=== PATIENT | female | born 1990 | race Caucasian/White ===

== ENCOUNTER → 2016-05-29 | Outpatient (CLI) | payer OTHER, MEDICAID ==
[~2016-05-29] MED LIST: BUPR75TA PO; TAB-TAB PO; ZANTTAB PO; [UNRECOGNIZED DRUG - CODE]
[2016-05-29 12:06] LABS: HEMATOCRIT 36.7 % (35.0-46.0); MEAN CELL VOLUME 84.2 FL (80.0-100.0); MEAN CORPUSCULAR HEMOGLOBIN 28.4 PG (27.0-34.0); MEAN CORPUSCULAR HGB CONC 33.7 % (32.0-36.0); PLATELET COUNT 241 TH/MM3 (150-450); RED BLOOD COUNT 4.35 MIL/MM3 (4.00-5.30); RED CELL DISTRIBUTION WIDTH 13.7 % (11.6-17.2); REVIEW FLAG FINAL
== END ==
LOC: CPRE 11:36
PROVIDERS: ATTEND Specialist
DX: Z01.812 Encounter for preprocedural laboratory examination (principal)
CPT/HCPCS: 36415; 85027

== ENCOUNTER → 2016-05-31 | Day surgery (SDC) | payer OTHER, MEDICAID ==
--- NOTE | 2016-05-30 08:31 | MH ---
cc: LAWRENCE AGUILLON DATE OF ADMISSION: 05/31/2016 HISTORY OF PRESENT ILLNESS A 25-year-old with chronic sinusitis, nasal obstruction and chronic otitis, for open septal reconstruction, bilateral turbinectomy, bilateral endoscopic sinusotomy, bilateral myringotomy and tube placement. PAST MEDICAL HISTORY Unremarkable. PAST SURGICAL HISTORY Unremarkable. REVIEW OF SYSTEMS/FAMILY HISTORY/SOCIAL HISTORY Unremarkable. PHYSICAL EXAMINATION GENERAL: Well-appearing patient, in no acute distress noted. HEENT: Exam reveals fluid behind each eardrum, septal deviation, turbinate hypertrophy, copious clear secretions. LUNGS: Clear. HEART: Regular rate and rhythm. ABDOMEN: Soft and nontender. EXTREMITIES: Without cyanosis, clubbing or edema. NEUROLOGIC: Alert, oriented, nonfocal neurologic exam. IMPRESSION The patient with chronic otitis, chronic sinusitis and nasal obstruction for surgical correction. Instructed method of surgery and possible complication to include anesthetic complication, cardiac difficulty, pulmonary difficulty, stroke, coma or even . Surgical complication of bleeding, infection, risk of transfusion, risk of injury to orbit including blindness and diplopia, injury to brain including CSF leak, meningitis, brain abscess or even , early or late extrusion of tubes, tympanic membrane perforation, conductive or sensorineural hearing loss. The patient appeared to agree, accept and understand above-mentioned risks and benefits. No guarantees or warranties regarding outcome were given. We will therefore proceed with surgery. MD GURINDER Easton/LEE /8:09 AM /8:13 AM
[~2016-05-31] VITALS: Ht 172.7 cm; Wt 122.5 kg
[~2016-05-31] MED LIST changes: +*morphine SULFATE 8 MG/ML PERIprocedure ONLY ONE; +ACETAMINOPHEN 1000 MG/100 ML VIAL IV ONE; +ACETAMINOPHEN/HYDROcodone 325 MG/7.5 MG TAB PO PRN; +CHLORHEXIDINE GLUCONATE 2 % 1 PACK (2 CLOTHS) TOPICAL PRN; +EPINEPHrine HCL (1:1000) 30 MG/30 ML VIAL ONE; +INSULIN HUMAN REGULAR 1,000 UNITS/10 ML VIAL SQ PRN; +LACTATED RINGER'S 1000 ML IV PRN; +LIDOCAINE 1%/EPINEPHrine 1:200,000 PF SOLN 30 ML VIAL OTHER ONE; +METOPROLOL TARTRATE 25 MG TAB PO PRN; +MORPHINE SULFATE 4 MG/ML INJ IV PRN; +OFLOXACIN 0.3% OPTH SOLN 5 ML BTL ONE; +ONDANSETRON HCL 4 MG/2 ML VIAL IV PUSH ONE; +ONDANSETRON HCL 4 MG/2 ML VIAL IV PUSH PRN; +POVIDONE IODINE 5% (ANTISEPSIS KIT) 4 APPLICATIONS EACH NARE PRN; +PROPOFOL 200 MG/20 ML AMP IV ONE; +SODIUM CHLORID 0.9% 500 ML IV PRN; -TAB-TAB PO; -[UNRECOGNIZED DRUG - CODE]; +fentaNYL CITRATE 250 MCG/5 ML AMP ONE
[2016-05-31 06:27] VITALS: BP 113/56; PULSE 79; RESP 18; TEMP 98.2; O2SAT 97
[2016-05-31 11:44] VITALS: BP 142/69; PULSE 78; RESP 16; TEMP 97.7; O2SAT 98
--- NOTE | 2016-06-03 09:12 | MP ---
cc: LAWRENCE AGUILLON DATE OF SURGERY: 05/31/2016 PREOPERATIVE DIAGNOSIS: Nasal obstruction, chronic sinusitis, chronic otitis. POSTOPERATIVE DIAGNOSIS: Nasal obstruction, chronic sinusitis, chronic otitis. PROCEDURE Open septal reconstruction, left endoscopic maxillary antrostomy, right endoscopic maxillary antrostomy, right endoscopic anterior ethmoidectomy, right endoscopic frontal sinusotomy, left and right inferior turbinectomy, submucous resection, bilateral myringotomy and tube placement. ANESTHESIA: General. ESTIMATED BLOOD LOSS 300 cc COMPLICATIONS: None. OPERATING SURGEON Dr. Aguillon. OPERATION The patient was prepped and draped in the usual fashion. 1% Xylocaine 1:100,000 epinephrine injected into nasal septum, inferior turbinate, middle meatus bilaterally. 1:1000 adrenaline soaked pledgets were placed and then under microscopic visualization anterior-inferior radial myringotomy incision made on the right ear. Fluid suctioned from the middle ear cavity and a tympanostomy T-tube placed in good position along with Oflox. In a similar fashion left side anterior-inferior radial myringotomy incision made through microscopic visualization. Fluid suctioned from middle ear cavity and tympanostomy T-tube placed in good position along with Oflox. Under endoscopic visualization, an uncinectomy was performed on the right side with microdebrider. Natural antrostomy identified and enlarged with the microdebrider as well, anterior posterior ethmoidectomy performed with microdebrider. A significant amount of bleeding was noted. The patient was generally very bloody and all mucosal surfaces that were operated on were significantly bleeding. The frontal sinus recess was dissected with the microdebrider and the balloon sinuplasty was used to dilate the frontal sinus on the right side. At this point a mucoperichondrial incision was made on the left septum. A mucoperichondrial flap elevated. A significant amount of bone and cartilage removed to improve the nasal airway and reduce the nasal fracture. The mucoperichondrial flap was reapproximated. Under endoscopic visualization, the natural antrostomy was identified and enlarged with the microdebrider and a partial uncinectomy performed. A Telfa splint was placed in the right middle meatus. The inferior turbinates were submucosally vaporized partially with the Coblator probe, multiple insertions, power level 4, both sides were made. At the end of the procedure, moderate bleeding was still noted and bilateral Nasopore packing was placed. The patient tolerated the procedure well. MD GURINDER Easton/ELANA /8:43 AM /8:54 AM
== END | disposition home or self-care (01) ==
LOC: HSDC 05:58 → EDUNIT# 07:30
PROVIDERS: ATTEND Specialist
DX: J32.9 Chronic sinusitis, unspecified (principal); J34.89 Other specified disorders of nose and nasal sinuses; H66.90 Otitis media, unspecified, unspecified ear
CPT/HCPCS: 00126; 00160; 30140; 30520; 31254; 31256; 31276; 69436; J0131; J0171; J2270; J2405; J3010; J7120

== ENCOUNTER 2016-10-10 23:32 | Emergency (ER) | payer MEDICAID, OTHER ==
[~2016-10-10] VITALS: Ht 172.7 cm; Wt 122.0 kg
[~2016-10-10 23:32] MED LIST changes: -*morphine SULFATE 8 MG/ML PERIprocedure ONLY ONE; -ACETAMINOPHEN 1000 MG/100 ML VIAL IV ONE; -ACETAMINOPHEN/HYDROcodone 325 MG/7.5 MG TAB PO PRN; -CHLORHEXIDINE GLUCONATE 2 % 1 PACK (2 CLOTHS) TOPICAL PRN; -EPINEPHrine HCL (1:1000) 30 MG/30 ML VIAL ONE; -INSULIN HUMAN REGULAR 1,000 UNITS/10 ML VIAL SQ PRN; -LACTATED RINGER'S 1000 ML IV PRN; -LIDOCAINE 1%/EPINEPHrine 1:200,000 PF SOLN 30 ML VIAL OTHER ONE; -METOPROLOL TARTRATE 25 MG TAB PO PRN; -MORPHINE SULFATE 4 MG/ML INJ IV PRN; -OFLOXACIN 0.3% OPTH SOLN 5 ML BTL ONE; -ONDANSETRON HCL 4 MG/2 ML VIAL IV PUSH ONE; -ONDANSETRON HCL 4 MG/2 ML VIAL IV PUSH PRN; -POVIDONE IODINE 5% (ANTISEPSIS KIT) 4 APPLICATIONS EACH NARE PRN; -PROPOFOL 200 MG/20 ML AMP IV ONE; -SODIUM CHLORID 0.9% 500 ML IV PRN; -fentaNYL CITRATE 250 MCG/5 ML AMP ONE
[2016-10-10 23:34] VITALS: BP 158/79; PULSE 71; RESP 16; TEMP 98.8; O2SAT 98
[2016-10-11] MEDS ORDERED: KETOROLAC TROMETHAMINE 60 MG/2 ML (IM) VIAL IM ONE (00:45)
--- NOTE | 2016-10-11 01:17 | PD ---
HPI Chief Complaint: ENT Complaint Time Seen by Provider: 00:45 Travel History International Travel<30 days: No Contact w/Intl Traveler<30days: No Traveled to known affect area: No History of Present Illness HPI 26-year-old female presents for evaluation of right ear and right-sided facial pain. The patient reports that she underwent open septal reconstruction, left endoscopic maxillary antrostomy, right endoscopic anterior ethmoidectomy, right endoscopic frontal sinusotomy, left and right inferior turbinectomy, submucous resection, bilateral myringotomy and tube placement. This was performed on May 21 by ENT doctor Aleah. She reports that she has avoided giving any sort of water in her ears since then. Today she told to the bottom of her pool , approximately 6 feet deep, to clean it and when she exited she developed pain in her right ear and right side of her face. She was felt like her right ear is clogged with water. She tried using a hair blow dryer and tried applying rubbing alcohol into her right ear too dried out however the pain has persisted which prompted evaluation. Denies drainage, fevers, chills, cough, congestion. No other complaints. PFSH Past Medical History Cancer: No Cardiovascular Problems: No Diabetes: No Diminished Hearing: No Endocrine: No Gastrointestinal Disorders: Yes (CELIC DISEASE GERD, ) Genitourinary: No Hepatitis: No Hiatal Hernia: No Immune Disorder: No Musculoskeletal: No Neurologic: No Psychiatric: Yes Reproductive: No Respiratory: Yes (ASTHMA HX) Immunizations Current: No Thyroid Disease: No Tetanus Vaccination: Unknown Influenza Vaccination: No ?: Not LMP: on it 10/10 : 3 Para: 2 : 1 Past Surgical History AICD: No Section: Yes (x2) Gynecologic Surgery: Yes (2 C SECTION) Joint Replacement: No Pacemaker: No Other Surgery: Yes (sinnus recounstrucction and ear tubes) Social History Alcohol Use: No Tobacco Use: No Substance Use: No Allergies-Medications (Allergen,Severity, Reaction): Coded Allergies: gluten (Unverified Allergy, Severe, diarrhea, 09/26/16) 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 HEAD: Atraumatic. Normocephalic. EYES: Pupils equal and round. No scleral icterus. No injection or drainage. ENT: No nasal bleeding or discharge. Mucous membranes pink and moist. Bilateral tympanostomy tubes are in place without drainage. Tympanic membranes appear normal. There is no erythema of the external ear canals. There is no foreign debris. NECK: Trachea midline. No JVD. CARDIOVASCULAR: Regular rate and rhythm. No murmur appreciated. RESPIRATORY: No accessory muscle use. Clear to auscultation. Breath sounds equal bilaterally. Data Data Last Documented VS Vital Signs Date Time Temp Pulse Resp B/P (MAP) Pulse Ox O2 Delivery O2 Flow Rate FiO2 10/10/16 23:34 98.8 71 16 158/79 (105) 98 Room Air Orders Orders Ct Sinuses W/O Iv Contrast (10/11/16 ) Ketorolac Inj (Toradol Inj) (10/11/16 00:45) Amoxicil-Clavulanate (Augmentin) (10/11/16 02:15) MDM Medical Decision Making Medical Screen Exam Complete: Yes Emergency Medical Condition: Yes Medical Record Reviewed: Yes Differential Diagnosis Barotrauma, otitis externa, otitis media, tympanostomy malfunction Narrative Course 26-year-old female here with right ear and right-sided facial pain after swimming 6 feet deep in her pool to clean it. She underwent sinus/ear procedures in May of this year examination is reassuring. The tympanostomy tubes are in place without drainage. Plan is for CT of the sinuses. She will be given Toradol for pain. CT imaging reveals right-sided maxillary sinusitis as well as questionable trace fluid or mucosal thickening in the right no ear which is consistent with her symptoms and history. The patient is being discharged with Augmentin and ofloxacin otic solution. She feels improved after the administration of Toradol. Diagnosis Primary Impression: Maxillary sinusitis Qualified Codes: J01.00 - Acute maxillary sinusitis, unspecified Additional Impression: Status post myringotomy with tube placement of both ears Additional Instructions: Medication as prescribed. Tylenol or ibuprofen for discomfort. Return for any emergent medical conditions. Med/Other Pt SpecificInfo: Prescription(s) given Scripts Amoxicillin-Clavulanate (Augmentin) 875-125 Mg Tab 1 TAB PO BID for Infection for 10 Days, TAB 0 Refills Prov: Chris Leroy MD 10/11/16 Ofloxacin Otic Drops (Ofloxacin Otic Drops) 0.3 % Drops 10 DROP RIGHT EAR DAILY for Infection, #1 BOTTLE 0 Refills Prov: Chris Leroy MD 10/11/16 Disposition: 01 DISCHARGE HOME Condition: Stable Lalo Dunn Oct 11, 2016 01:17
--- NOTE | 2016-10-11 01:33 | RADRPT ---
EXAM DATE/TIME: 10/11/2016 01:10 [facility] COMPARISON: No previous studies available for comparison. INDICATIONS : Right side ear and facial pain. RADIATION DOSE: 11.24 CTDIvol (mGy) MEDICAL HISTORY : None SURGICAL HISTORY : Sinus recontruction. Ear tube surgery. ENCOUNTER: Initial ACUITY: 1 day PAIN SCORE: 4/10 LOCATION: Right facial TECHNIQUE: Volumetric scanning of the paranasal sinuses was performed. Using automated exposure control and adj ustment of the mA and/or kV according to patient size, radiation dose was kept as low as reasonably a chievable to obtain optimal diagnostic quality images. DICOM format image data is available electro nically for review and comparison. FINDINGS: There is an air-fluid level in the right maxillary sinus characteristic and maxillary sinusitis. Fron aniyah sinus, ethmoid air cells, left maxillary sinus and sphenoid sinus are clear. There is some questi onable fluid or mucosal thickening in the right middle ear. CONCLUSION: 1. Right-sided maxillary sinusitis. 2. Questionable trace fluid or mucosal thickening in the right middle ear. Padilla Metz MD on October 11, 2016 at 1:28 Board Certified Radiologist. This report was verified electronically.
[2016-10-11] MEDS ORDERED: OFLO0.3D9 RIGHT EAR (02:06)
[2016-10-11] MEDS ORDERED: AUGM875T3 PO (02:06)
[2016-10-11] MEDS ORDERED: AMOXICILLIN/CLAVULANATE K 875 MG TAB PO ONE (02:15)
== END 2016-10-11 02:16 | disposition home or self-care (01) ==
LOC: NEPD 23:32
DX: J32.0 Chronic maxillary sinusitis (principal); K90.0 Celiac disease; K21.9 Gastro-esophageal reflux disease without esophagitis; J45.909 Unspecified asthma, uncomplicated; Z79.899 Other long term (current) drug therapy
CPT/HCPCS: 70486; 96372; 99285; J1885